=== PATIENT | female | born 1960 | race African-American/Black ===

== ENCOUNTER → 2018-05-26 | Outpatient (CLI) | payer BC ==
[~2018-05-26] MED LIST: LIDOCAINE 1% Multi-Dose 50 ML VIAL. INJ ONE; LIDOCAINE 1%/EPI 1:100,000 20 ML VIAL. INJ ONE
--- NOTE | 2018-06-01 08:38 | RAD ---
Ultrasound-guided left breast biopsy, 05/26/2018: History: Suspicious nodule An outside mammographic workup demonstrated a slightly hypoechoic nodule at the 12:00 location in the left breast which was considered mildly suspicious. Biopsy was requested. Under local anesthesia, aseptic conditions and sonographic guidance the Between Digital biopsy instrument was passed into this nodule via a lateral approach. Multiple 14-gauge core samples were obtained and sent to pathology for evaluation. A biopsy marker was then deposited biopsy site. The biopsy instrument was removed and hemostasis obtained. Two-view postprocedural digital mammograms were then obtained to document position of biopsy marker. The patient tolerated the procedure well and left the department in good condition. The subsequent pathology report indicated the presence of fatty tissue. Correlation with the sonographic and mammographic findings suggests that this is a prominent fatty lobule rather than a pathologic mass. Mammographic and sonographic follow-up in 6 months is suggested.
--- NOTE | 2018-06-01 12:36 | PATHOLOGY ---
[facility] Accession Number: [id number] . 01 Material submitted: . LEFT BREAST TISSUE 12:00, 10 CM FN . 01 Clinical history: . Diffuse cystic mastopathy left breast . 02 Diagnosis: Left breast needle biopsies: - Segments of fatty breast tissue showing focal recent hemorrhage. [facility]/05/29/2018 . 02 Comment: The specimen is examined at multiple levels. Microscopic sections reveal fatty breast tissue containing a rare small duct. There is focal recent hemorrhage. There are no significant pathologic abnormalities identified within the biopsy. Please correlate with radiographic findings. (JPM:[facility] 05/29/2018) . 02 Electronically signed: . Maximiliano Giles MD, Pathologist NPI- [id number] . 01 Gross description: . The specimen is received in formalin, labeled "Letty Rivera, left breast 12:00" and consists of multiple needle cores of yellow tissue measuring between 0.1 cm and 1.4 cm in length and 0.1-0.2 cm each in diameter. They are entirely submitted in A1-A3 (A3 is an aggregate). The specimen was obtained at 9:05 AM on 05/26/18 and placed in formalin at 9:08 AM. The cold ischemic time is 3 minutes and the total formalin fixation time is greater than 6 hours but less than 72 hours. (SDY; 05/26/2018) SYU/SYU . 02 Pathologist provided ICD-10: N64.59 . 02 CPT . 993485 Specimen Comment: A courtesy copy of this report has been sent to Specimen Comment: [phone], , . Specimen Comment: Report sent to ,DR SANDOVAL / DR WELLER Specimen Comment: A duplicate report has been generated due to demographic updates. Performed at: 01 [facility] [address], [place] [id number] MD Colin Xiao MD Phone: [phone] Performed at: 02 [facility] [address] [place], [place] [id number] MD Maximiliano Giles MD Phone: [phone]
== END | disposition home or self-care (01) ==
LOC: US 07:53
PROVIDERS: ATTEND Surgery
DX: N63.10 Unspecified lump in the right breast, unspecified quadrant (principal); Z88.5 Allergy status to narcotic agent
CPT/HCPCS: 19083; 77065; 88305; C1713; 19085; 76942